=== PATIENT | female | born 1960 | race African-American/Black ===

== ENCOUNTER 2024-01-15 04:25 | Day surgery (SDC) | payer OTHER ==
[2024-01-12 16:39] VITALS: BMI 29.2
[2024-01-15] MEDS ORDERED: BUPIVACAINE HCL/PF 0.75% 10 ML VIAL ONE (07:14)
[2024-01-15] MEDS ORDERED: LIDOCAINE HCL/PF 1% SDV 5ML VIAL ONE (07:14)
[2024-01-15] MEDS: BUPIVACAINE 0.75% IN DEXTROSE/PF 2ML AMPULE NR ONE ×2 (10:31)
[2024-01-15] MEDS: LIDOCAINE 1% P/F 10 MG/ML VIAL PNB ONE ×2 (10:31)
[2024-01-15 10:53] VITALS: BP 145/68; PULSE 54; RESP 16; TEMP 97.8
[2024-01-15] MEDS ORDERED: ACETAMINOPHEN 500 MG TABLET (FP) PO PRN (12:58)
== END 2024-01-15 11:45 | disposition home or self-care (01) ==
LOC: JASU-SURG 04:25
PROVIDERS: ATTEND Pain Medicine Pain Medicine
PROC: 3E0T33Z Introduction of Anti-inflammatory into Peripheral Nerves and Plexi, Percutaneous Approach (ICD-10-PCS; 2024-01-15)
PROC: 3E0T3BZ Introduction of Anesthetic Agent into Peripheral Nerves and Plexi, Percutaneous Approach (ICD-10-PCS; principal; 2024-01-15 10:00)
DX: M47.816 Spondylosis without myelopathy or radiculopathy, lumbar region (principal)
CPT/HCPCS: 76000-TC-FY

== ENCOUNTER 2024-02-19 04:22 | Day surgery (SDC) | payer OTHER ==
[2024-02-18 14:00] VITALS: BMI 29.2
[2024-02-19] MEDS ORDERED: BUPIVACAINE HCL/PF 0.5% (5MG/ML) 10 ML VIAL ONE (07:33)
[2024-02-19] MEDS ORDERED: LIDOCAINE HCL/PF 1% SDV 5ML VIAL ONE (07:33)
[2024-02-19] MEDS ORDERED: BUPIVACAINE HCL/PF 0.75% 10 ML VIAL ONE (07:33)
[2024-02-19] MEDS ORDERED: ACETAMINOPHEN 500 MG TABLET (FP) PO PRN (10:58)
[2024-02-19] MEDS: LIDOCAINE HCL 1% PRESERVATIVE FREE - 30ML VIAL IJ ONE (17:15)
[2024-02-19] MEDS: BUPIVACAINE HCL/PF 0.75% 10 ML VIAL NR ONE (17:15)
[2024-02-19 17:35] VITALS: RESP 18; TEMP 98
[2024-02-19 18:15] VITALS: BP 134/70; PULSE 69
== END 2024-02-19 18:20 | disposition home or self-care (01) ==
LOC: JASU-SURG 04:22
PROVIDERS: ATTEND Pain Medicine Pain Medicine
PROC: 3E0T3BZ Introduction of Anesthetic Agent into Peripheral Nerves and Plexi, Percutaneous Approach (ICD-10-PCS; principal; 2024-02-19 14:45)
DX: M47.816 Spondylosis without myelopathy or radiculopathy, lumbar region (principal)
CPT/HCPCS: 76000-TC-FY

== ENCOUNTER 2024-03-19 04:13 | Day surgery (SDC) | payer OTHER ==
[2024-03-17 12:55] VITALS: BMI 30.5
[~2024-03-19 04:13] MED LIST: ACETAMINOPHEN 500 MG TABLET (FP) PO PRN
[2024-03-19] MEDS ORDERED: LIDOCAINE HCL/PF 2% SDV 5ML VIAL ONE ×2 (07:12→15:34)
[2024-03-19] MEDS ORDERED: BUPIVACAINE HCL/PF 0.75% 10 ML VIAL ONE (07:12)
[2024-03-19] MEDS ORDERED: DEXAMETHASONE SOD PHOSPHATE 10 MG/1 ML VIAL ONE (07:12)
[2024-03-19] MEDS ORDERED: LIDOCAINE HCL/PF 1% SDV 5ML VIAL ONE ×2 (07:12→14:52)
[2024-03-19 14:16] VITALS: RESP 18
[2024-03-19] MEDS: LIDOCAINE HCL 1% PRESERVATIVE FREE - 30ML VIAL IJ ONE ×2 (15:24)
[2024-03-19] MEDS: BUPIVACAINE HCL/PF 0.75% 10 ML VIAL NR ONE ×2 (15:36)
[2024-03-19] MEDS: LIDOCAINE HCL 2% (50ML VIAL) NR ONE ×2 (15:36)
[2024-03-19] MEDS: DEXAMETHASONE SOD PHOSPHATE 10 MG/1 ML VIAL IVPUSH ONE ×2 (15:36)
[2024-03-19 16:48] VITALS: BP 150/70; PULSE 60; TEMP 97
== END 2024-03-19 16:35 | disposition home or self-care (01) ==
LOC: JASU-SURG 04:13
PROVIDERS: ATTEND Pain Medicine Pain Medicine
PROC: 015B3ZZ Destruction of Lumbar Nerve, Percutaneous Approach (ICD-10-PCS; principal; 2024-03-19 15:15)
DX: M47.816 Spondylosis without myelopathy or radiculopathy, lumbar region (principal)
CPT/HCPCS: 76000-TC-FY; J1100

== ENCOUNTER → 2024-04-22 | Day surgery (SDC) | payer OTHER ==
[2024-04-21 10:59] VITALS: BMI 30.5
[2024-04-22 10:11] VITALS: RESP 20
[2024-04-22] MEDS: LIDOCAINE HCL 1% PRESERVATIVE FREE - 30ML VIAL IJ ONE ×2 (12:36)
[2024-04-22] MEDS: LIDOCAINE HCL/EPINEPHRINE/PF 10 ML VIAL IVPUSH ONE ×2 (12:37)
[2024-04-22] MEDS: BUPIVACAINE HCL/PF 0.75% 10 ML VIAL NR ONE ×2 (12:41)
[2024-04-22] MEDS: DEXAMETHASONE SOD PHOSPHATE 10 MG/1 ML VIAL IM ONE ×2 (12:49)
[2024-04-22 13:32] VITALS: TEMP 97.7
[2024-04-22 15:19] VITALS: BP 153/82; PULSE 74
== END | disposition home or self-care (01) ==
LOC: JASU-SURG 04:23
PROVIDERS: ATTEND Pain Medicine Pain Medicine
PROC: 015B3ZZ Destruction of Lumbar Nerve, Percutaneous Approach (ICD-10-PCS; principal; 2024-04-22 10:45)
DX: M47.816 Spondylosis without myelopathy or radiculopathy, lumbar region (principal)
CPT/HCPCS: 76000-TC-FY; J1100

== ENCOUNTER 2024-08-19 05:28 | Day surgery (SDC) | payer OTHER ==
[2024-08-17 09:44] VITALS: BMI 29.6
[2024-08-19] MEDS: LIDOCAINE HCL 1% PRESERVATIVE FREE - 30ML VIAL IJ ONE (14:29)
[2024-08-19] MEDS: IOHEXOL 180 MG/1 ML ML IJ ONE ×2 (14:31)
[2024-08-19] MEDS: DEXAMETHASONE SOD PHOSPHATE 10 MG/1 ML VIAL IM ONE ×2 (14:32)
[2024-08-19 14:48] VITALS: RESP 18
[2024-08-19 15:09] VITALS: BP 131/81; PULSE 64; TEMP 97.3
== END 2024-08-19 15:22 | disposition home or self-care (01) ==
LOC: JASU-SURG 05:28
PROVIDERS: ATTEND Pain Medicine Pain Medicine
PROC: 3E0R3BZ Introduction of Anesthetic Agent into Spinal Canal, Percutaneous Approach (ICD-10-PCS; 2024-08-19)
PROC: 3E0R33Z Introduction of Anti-inflammatory into Spinal Canal, Percutaneous Approach (ICD-10-PCS; principal; 2024-08-19 13:45)
DX: M54.16 Radiculopathy, lumbar region (principal)
CPT/HCPCS: J1100